=== PATIENT | female | born 1950 | race Caucasian/White ===

== ENCOUNTER → 2016-10-24 | Outpatient (CLI) | payer OTHER ==
--- NOTE | 2016-10-24 16:59 | DX ---
Left second toe 3 views Reason For Examination: Pain M 79.673, hammertoe M 20.40. Findings: The bones are intact. Joint spaces have normal thickness. No erosions and no periosteal shirley ction are found. No radiopaque foreign body. Hammertoe deformities of second and third toes are prese nt. Impression: Hammertoe deformities of second and third toes.
== END ==
LOC: FIMAGING 16:07
PROVIDERS: ATTEND Family Medicine
DX: M20.42 Other hammer toe(s) (acquired), left foot (principal)

== ENCOUNTER 2017-09-26 09:57 | Emergency (ER) | payer OTHER ==
[2017-09-26 10:02] VITALS: RESP 18; TEMP 97.9
[2017-09-26] MEDS ORDERED: FAMOTIDINE 20 MG/NACL 50 ML IV ONE (10:35)
[2017-09-26] MEDS ORDERED: NS 1,000 ML IV ONE (10:35)
[2017-09-26 10:58] LABS: PLATELET COUNT 192 10^3/uL (150-400)
--- NOTE | 2017-09-26 11:13 | CPEKG ---
Heart Rate: 48 RR Interval: 1250 P-R Interval: 192 QRSD Interval: 74 QT Interval: 448 QTC Interval: 401 P [place]: 63 QRS [place]: 1 T Wave [place]: 14 EKG Severity - OTHERWISE NORMAL ECG - EKG Impression: SINUS BRADYCARDIA Electronically Signed By: Randy Lawson 26-Sep-2017 15:25:37
--- NOTE | 2017-09-26 11:41 | EDPHY ---
H & P Time Seen by Provider: 09/26/17 10:31 HPI/ROS: HPI Left upper abdominal pain. 67-year-old female by private vehicle. This patient complains of intermittent, sharp, stabbing, rapid onset and rapid an offset pain which she feels is deep to her anterior axillary line on the left side at the inferior costal margin. She denies any pain at this time. She denies any associated aggravating or alleviating factors. She states that she has had this pain on and off over the last 4 days. ROS: Constitutional: No fever, no chills. No weakness. Eyes: No discharge. No changes in vision. ENT: No sore throat. No nasal congestion or rhinorrhea. Respiratory: No cough. No shortness of breath. Cardiac: No chest pain, no palpitations. Gastrointestinal: As above, no vomiting, no diarrhea. Genitourinary: No hematuria. No dysuria or increased frequency with urination. Musculoskeletal: No back pain. No neck pain. No myalgias or arthralgias. Skin: No rashes. Neurological: No headache. No focal weakness or altered sensation. Past medical history: Hypothyroidism, right hip hematoma removed, hernia repair , total hysterectomy, eye surgeries, orthopedic surgeries. Social history: Nonsmoker. Here by herself. No alcohol. Physical Exam: General Appearance: Alert, no distress. This patient is responding to questions appropriately and in full sentences. This patient appears well- hydrated and well-nourished. Eyes: Pupils equal and round no pallor or injection. No lid edema, erythema or injection. Respiratory: There are no retractions, lungs are clear to auscultation with good air movement bilaterally. No pain on palpation or soft tissue changes noted in the area of the described pain. Cardiovascular: Regular rate and rhythm. No murmur. Chest wall is stable to AP and lateral palpation. Gastrointestinal: Abdomen is soft and nontender, no masses, bowel sounds normal. No focal tenderness at McBurney's point. No Suggs sign. Neurological: Motor sensory function is grossly intact. Cranial nerves are normal. Gait is normal. Skin: Warm and dry, no rashes. No evidence of zoster. Musculoskeletal: Neck is supple and nontender. Extremities are symmetrical. All joints range without pain or impingement. Psychiatric: No agitation. No depression. Database: EKG: EKG time is 11:11 a.m.; EKG shows a narrow complex normal sinus bradycardia with a ventricular rate of 48. The RI, QRS, QT intervals are within normal limits. There are no ST-T wave changes indicative of ischemic or injury pattern. No evidence of right heart strain. Interpreted by me. Imaging: Chest x-ray PA and lateral; the cardiac mediastinal silhouette is unremarkable. No evidence of infiltrate or pneumothorax. No acute cardiopulmonary disease process noted. Interpreted by me. Procedures: Emergency department course: Vital signs reviewed and are unremarkable. She is not in any significant pain at this time. EKG performed and reviewed by myself. Chest x-ray obtained. 1:00 p.m., patient re-evaluated. Resting comfortably at this time. She is asymptomatic. Denies any pain. She has had no shortness of breath. Discussed the results of her diagnostic workup. Discussed slight elevation of D-dimer. Her presentation is not consistent with pulmonary embolism. I discussed getting a CT angiogram of her chest to further evaluate for pulmonary embolism. She does not want to do this. In my professional opinion she understands the risks of declining this test. The patient competently engages in shared decision making. They demonstrate capacitance to make decisions. She feels comfortable going home at this time is asking for discharge. Follow-up and return to emergency department precautions were thoroughly reviewed with her. All of her questions were answered. She was discharged in good condition. Differential Diagnosis: The differential diagnosis on this patient includes but is not limited to musculoskeletal pain, pleurisy. Acute coronary syndrome, pulmonary embolism, ureterolithiasis, pyelonephritis, colitis unlikely. This represents a partial list of diagnoses considered. These considerations are based on history, physical exam, past history, reassessment and diagnostic testing. Smoking Status: Former smoker Constitutional: Initial Vital Signs Temperature (C) 36.6 C 09/26/17 09:58 Heart Rate 55 L 09/26/17 09:58 Respiratory Rate 18 09/26/17 09:58 Blood Pressure 123/70 H 09/26/17 09:58 O2 Sat (%) 95 09/26/17 09:58 O2 Delivery Mode Room Air Allergies/Adverse Reactions: No Known Allergies Allergy (Unverified 07/12/16 12:16) Home Medications: Medication Instructions Recorded Cholecalciferol Vit D3 [Vitamin D3 2,000 units PO DAILY 07/12/16 2000 units tab (OTC)] Escitalopram Oxalate [Lexapro] 5 mg PO DAILY 07/12/16 Herbals/Supplements -Info Only 1 ea PO DAILY 07/12/16 Levothyroxine [Synthroid 100 mcg 100 mcg PO DAILY06 07/12/16 (*)] [place] 3 1,000 mg Softgel 09/26/17 Vitamin B12 09/26/17 Medical Decision Making - Diagnostics Imaging Results: Imaging Impressions Chest X-Ray 09/26/17 10:35 Impression: No acute findings in the chest. - Data Points Laboratory Results: Laboratory Results 09/26/17 10:30 09/26/17 10:30 09/26/17 09/26/17 09/26/17 12:10 10:30 10:30 WBC RBC Hgb Hct MCV MCH MCHC RDW Plt Count MPV Neut % (Auto) Lymph % (Auto) Weld % (Auto) Eos % (Auto) Baso % (Auto) Nucleat RBC Rel Count Absolute Neuts (auto) Absolute Lymphs (auto) Absolute Monos (auto) Absolute Eos (auto) Absolute Basos (auto) Absolute Nucleated RBC Immature Gran % Immature Gran # D-Dimer 0.62 ug/mLFEU H ug/mLFEU (0.00-0.50) Sodium 136 mEq/L mEq/L (134-144) Potassium 5.3 mEq/L H mEq/L (3.5-5.2) Chloride 100 mEq/L mEq/L (97-110) Carbon Dioxide 24 mEq/l mEq/l (22-31) Anion Gap 12 mEq/L mEq/L (8-16) BUN 19 mg/dL mg/dL (7-23) Creatinine 0.9 mg/dL mg/dL (0.6-1.0) Estimated GFR > 60 Glucose 85 mg/dL mg/dL (70-100) Calcium 9.8 mg/dL mg/dL (8.5-10.4) Total Bilirubin 1.1 mg/dL mg/dL (0.1-1.4) Conjugated Bilirubin 0.6 mg/dL H mg/dL (0.0-0.5) Unconjugated Bilirubin 0.5 mg/dL mg/dL (0.0-1.1) AST 38 IU/L IU/L (14-46) ALT 28 IU/L IU/L (9-52) Alkaline Phosphatase 79 IU/L IU/L (38-126) Total Protein 7.6 g/dL g/dL (6.3-8.2) Albumin 4.9 g/dL g/dL (3.5-5.0) Lipase 71 IU/L IU/L (23-300) Specimen Hemolysis 161 Urine Color PALE YELLOW Urine Appearance CLEAR Urine pH 6.0 (5.0-7.5) Ur Specific [place] 1.005 (1.002-1.030) Urine Protein NEGATIVE (NEGATIVE) Urine Ketones NEGATIVE (NEGATIVE) Urine Blood NEGATIVE (NEGATIVE) Urine Nitrate NEGATIVE (NEGATIVE) Urine Bilirubin NEGATIVE (NEGATIVE) Urine Urobilinogen NEGATIVE EU EU (0.2-1.0) Ur Leukocyte Esterase NEGATIVE (NEGATIVE) Urine RBC NONE SEEN /hpf /hpf (0-3) Urine WBC 1-3 /hpf /hpf (0-3) Ur Epithelial Cells TRACE /lpf /lpf (NONE-1+) Urine Glucose NEGATIVE (NEGATIVE) 09/26/17 10:30 WBC 6.16 10^3/uL 10^3/uL (3.80-9.50) RBC 4.86 10^6/uL 10^6/uL (4.18-5.33) Hgb 16.0 g/dL g/dL (12.6-16.3) Hct 45.6 % % (38.0-47.0) MCV 93.8 fL fL (81.5-99.8) MCH 32.9 pg pg (27.9-34.1) MCHC 35.1 g/dL g/dL (32.4-36.7) RDW 11.9 % % (11.5-15.2) Plt Count 192 10^3/uL 10^3/uL (150-400) MPV 10.7 fL fL (8.7-11.7) Neut % (Auto) 66.2 % % (39.3-74.2) Lymph % (Auto) 21.4 % % (15.0-45.0) Weld % (Auto) 8.8 % % (4.5-13.0) Eos % (Auto) 2.3 % % (0.6-7.6) Baso % (Auto) 1.0 % % (0.3-1.7) Nucleat RBC Rel Count 0.0 % % (0.0-0.2) Absolute Neuts (auto) 4.08 10^3/uL 10^3/uL (1.70-6.50) Absolute Lymphs (auto) 1.32 10^3/uL 10^3/uL (1.00-3.00) Absolute Monos (auto) 0.54 10^3/uL 10^3/uL (0.30-0.80) Absolute Eos (auto) 0.14 10^3/uL 10^3/uL (0.03-0.40) Absolute Basos (auto) 0.06 10^3/uL 10^3/uL (0.02-0.10) Absolute Nucleated RBC 0.00 10^3/uL 10^3/uL (0-0.01) Immature Gran % 0.3 % % (0.0-1.1) Immature Gran # 0.02 10^3/uL 10^3/uL (0.00-0.10) D-Dimer Sodium Potassium Chloride Carbon Dioxide Anion Gap BUN Creatinine Estimated GFR Glucose Calcium Total Bilirubin Conjugated Bilirubin Unconjugated Bilirubin AST ALT Alkaline Phosphatase Total Protein Albumin Lipase Specimen Hemolysis Urine Color Urine Appearance Urine pH Ur Specific [place] Urine Protein Urine Ketones Urine Blood Urine Nitrate Urine Bilirubin Urine Urobilinogen Ur Leukocyte Esterase Urine RBC Urine WBC Ur Epithelial Cells Urine Glucose Medications Given: Discontinued Medications Sodium Chloride (Ns) 1,000 mls @ 0 mls/hr IV EDNOW ONE; Wide Open PRN Reason: Protocol Stop: 09/26/17 10:36 Last Admin: 09/26/17 11:13 Dose: 1,000 mls Famotidine/Sodium Chloride (Pepcid 20 Mg (Premix)) 50 mls @ 200 mls/hr IV EDNOW ONE Stop: 09/26/17 10:49 Last Admin: 09/26/17 11:12 Dose: 50 mls Departure - Departure Disposition: Home, Routine, Self-Care Clinical Impression: Left-sided chest wall pain Condition: Good Instructions: Chest Pain (ED) Additional Instructions: Read and follow provided instructions. Follow-up with your primary care physician early next week for re-evaluation as discussed. Ibuprofen dosin mg every 6 hours with meals for the next 3 days only. Return to the emergency department for worsening pain, persistent pain, shortness of breath, fever or other serious concerns. Referrals: Rosa Maria Smith MD [Primary Care Provider] - As per Instructions
[2017-09-26 13:55] VITALS: BP 124/82; PULSE 52; O2SAT 96
== END 2017-09-26 13:55 | disposition home or self-care (01) ==
DX: R07.89 Other chest pain (principal); E86.9 Volume depletion, unspecified; Z87.891 Personal history of nicotine dependence; Z90.710 Acquired absence of both cervix and uterus
CPT/HCPCS: 96374

== ENCOUNTER 2017-12-03 18:45 | Emergency (ER) | payer OTHER ==
[2017-12-03] MEDS ORDERED: HYDROmorphONE/DILAUDID 1 MG/ML INJ IM ONE ×2 (18:59→19:14)
--- NOTE | 2017-12-03 19:02 | EDPHY ---
H & P Stated Complaint: misstepped and twisted l knee Time Seen by Provider: 12/03/17 18:53 HPI/ROS: CHIEF COMPLAINT: Left knee pain HISTORY OF PRESENT ILLNESS: The patient is a 67-year-old female who was walking down the steps and missed a step and landed hard on her knee. Her knee buckled inward and she fell to her side. She has left knee pain but denies any other injuries. She has had that knee scoped for meniscus repair several years ago. She has been able to bear weight but with significant pain. REVIEW OF SYSTEMS: Constitutional: denies: chills, fever, recent illness, recent injury EENTM: denies: blurred vision, double vision, nose congestion Respiratory: denies: cough, shortness of breath Cardiac: denies: chest pain, irregular heart rate, lightheadedness, palpitations Gastrointestinal/Abdominal: denies: abdominal pain, diarrhea, nausea, vomiting, blood streaked stools Genitourinary: denies: dysuria, frequency, hematuria, pain Musculoskeletal: See HPI Skin: denies: lesions, rash, jaundice, bruising Neurological: denies: headache, numbness, paresthesia, tingling, dizziness, weakness Hematologic/Lymphatic: denies: blood clots, easy bleeding, easy bruising Immunologic/allergic: denies: HIV/AIDS, transplant EXAM: GENERAL: Well-appearing, well-nourished and in no acute distress. HEAD: Atraumatic, normocephalic. EYES: Pupils equal round and reactive to light, extraocular movements intact, sclera anicteric, conjunctiva are normal. ENT: TMs normal, nares patent, oropharynx clear without exudates. Moist mucous membranes. NECK: Normal range of motion, supple without lymphadenopathy or JVD. LUNGS: Breath sounds clear to auscultation bilaterally and equal. No wheezes rales or rhonchi. HEART: Regular rate and rhythm without murmurs, rubs or gallops. ABDOMEN: Soft, nontender, normoactive bowel sounds. No guarding, no rebound. No masses appreciated. BACK: No CVA tenderness, no spinal tenderness, step-offs or deformities EXTREMITIES: Left knee pain, no significant swelling or deformity. No bruising. Normal pulses and sensation distally. Patient has pain and mild laxity with posterior drawer. None with anterior drawer or lateral manipulation. None with axial loading. NEUROLOGICAL: Cranial nerves II through XII grossly intact. Normal speech, normal gait. 5/5 strength, normal movement in all extremities, normal sensation PSYCH: Normal mood, normal affect. SKIN: Warm, dry, normal turgor, no visible rashes or lesions. Source: Patient Exam Limitations: No limitations - Personal History Current Tetanus/Diphtheria Vaccine: Yes - Medical/Surgical History Hx Asthma: No Hx Chronic Respiratory Disease: No Hx Diabetes: No Hx Cardiac Disease: No Hx Renal Disease: No Hx Cirrhosis: No Hx Alcoholism: No Hx HIV/AIDS: No Hx Splenectomy or Spleen Trauma: No Other PMH: hypothyroidism, R hip hematoma rem., hernia repair, total hysterectomy, bilateral eye surgeries x7, bilateral knee scopes, R rotator cuff rep, abd hernia, ovaries removed. - Family History Significant Family History: No pertinent family hx - Social History Smoking Status: Former smoker Alcohol Use: Sober Drug Use: None Constitutional: Initial Vital Signs Temperature (C) 36.7 C 12/03/17 18:49 Heart Rate 59 L 12/03/17 18:49 Respiratory Rate 17 12/03/17 18:49 Blood Pressure 140/90 H 12/03/17 18:49 O2 Sat (%) 95 12/03/17 18:49 O2 Delivery Mode Room Air Allergies/Adverse Reactions: No Known Allergies Allergy (Verified 12/03/17 18:48) Home Medications: Medication Instructions Recorded Cholecalciferol Vit D3 [Vitamin D3 2,000 units PO DAILY 07/12/16 2000 units tab (OTC)] Escitalopram Oxalate [Lexapro] 5 mg PO DAILY 07/12/16 Herbals/Supplements -Info Only 1 ea PO DAILY 07/12/16 Levothyroxine [Synthroid 100 mcg 100 mcg PO DAILY06 07/12/16 (*)] [place] 3 1,000 mg Softgel 09/26/17 Vitamin B12 09/26/17 Oxycodone HCl 12/03/17 oxyCODONE/APAP 5/325 [Percocet 1 - 2 tab PO Q4H PRN #10 tab 12/03/17 5/325 (*)] Medical Decision Making - Diagnostics Imaging: I viewed and interpreted images myself (No fracture) Procedures: Procedure: Splint placement. A straight leg brace splint was applied. After application of the splint I returned and re-examined the patient. The splint was adequately immobilizing the joint and distal to the splint the patient's circulation and sensation was intact. ED Course/Re-evaluation: We discussed the x-ray results. No bony fractures visible. I suspect she has a ligamentous injury. I will place her in a straight leg brace and crutches and have her follow up with her orthopedist Dr. Diaz. I expect that he may need to get an MRI. Patient is requesting a prescription for Percocet. Previous one is over a year old. Differential Diagnosis: Partial list of the Differential diagnosis considered include but were not limited to; meniscus injury, ligamentous injury and although unlikely based on the history and physical exam, I also considered fracture, dislocation, vascular injury, nerve injury, infection. I discussed these differential diagnoses and the plan with the patient as well as the usual and expected course. The patient understands that the diagnosis is provisional and that in medicine we are not always correct and that further workup is often warranted. Usual and customary warnings were given. All of the patient's questions were answered. The patient was instructed to return to the emergency department should the symptoms at all worsen or return, otherwise to followup with the physician as we discussed. - Data Points Medications Given: Discontinued Medications Hydromorphone HCl (Dilaudid) 1 mg IM EDNOW ONE Stop: 12/03/17 19:00 Last Admin: 12/03/17 19:15 Dose: 1 mg Hydromorphone HCl (Dilaudid) 1 mg IM EDNOW ONE Stop: 12/03/17 19:15 Last Admin: 12/03/17 19:16 Dose: Not Given Departure - Departure Disposition: Home, Routine, Self-Care Clinical Impression: Internal derangement of left knee Condition: Fair Instructions: Oxycodone/Acetaminophen (By mouth), Knee Pain (ED) Referrals: Rosa Maria Smith MD [Primary Care Provider] - As per Instructions Pacheco Diaz MD [Medical Doctor] - 2-3 days without fail Prescriptions: oxyCODONE/APAP 5/325 [Percocet 5/325 (*)] 1 - 2 tab PO Q4H PRN #10 tab PRN Reason: Pain, Severe
[2017-12-03] MEDS ORDERED: HYDROmorphONE/DILAUDID 2 MG/ML INJ ONE (19:07)
[2017-12-03 19:56] VITALS: BP 115/72; PULSE 62; RESP 16; TEMP 98.6; O2SAT 91
== END 2017-12-03 19:55 | disposition home or self-care (01) ==
DX: M23.92 Unspecified internal derangement of left knee (principal); Z87.891 Personal history of nicotine dependence
CPT/HCPCS: 73564; 96372; 99284; J1170; L1830

== ENCOUNTER → 2018-08-21 | Outpatient (CLI) | payer OTHER | LOC: FIMAGING 09:20 | PROVIDERS: ATTEND Family Medicine | DX: J40 Bronchitis, not specified as acute or chronic (principal) | CPT/HCPCS: 82607-90 ==

== ENCOUNTER → 2018-09-17 | Outpatient (CLI) | payer OTHER | LOC: FIMAGING 11:35 | PROVIDERS: ATTEND Family Medicine | DX: Z12.31 Encounter for screening mammogram for malignant neoplasm of breast (principal) ==